=== PATIENT | female | born 1975 | race Caucasian/White ===

== ENCOUNTER 2017-11-10 01:33 | Emergency (ER) | payer OTHER, MEDICAID ==
[~2017-11-10] VITALS: Ht 170.2 cm; Wt 72.6 kg
[~2017-11-10 01:33] MED LIST: ADDERALL 20 MG20 M1; ADDERALL 20 MG20 MG PO; ALPRAZOLAM; AUGMENTIN 875875 MG PO; CARISOPRODOL 3350 MG PO; CLONAZEPAM; COMFORT PAC-MEL15 MG MC; DARVOCET-N 1001 EACH PO; FIORICET 50-301 EACH PO; FIORICET 50-321 EACH PO; FLEXERIL PO; HYDROCODONE-AP1 EAC6 PO; HYDROXYZINE HCL25 M2 PO; IBUPROFEN 200200 M1 PO; IBUPROFEN 800800 M1 PO; IBUPROFEN 800800 MG PO; LIDOCAINE VISC100 M1 MM; MEDROLDOSEPACK PO; MS CONTIN15 MG PO; NORCO 5-325 TA1 EACH PO; PENICILLIN V P500 MG PO; PERCOCET; PERCOCET 5-3251 EACH PO; PREDNISONE50 MG PO; TESSALON PERLE100 MG PO; TRAMADOL 50 MG50 MG; TRAMADOL 50 MG50 MG PO; VENTOLIN HFA 1818 GM INH; XANAX 0.5 MG0.5 MG; XANAX 0.5 MG0.5 MG PO; ZANAFLEX4 MG PO; ZOFRAN4 MG PO; ZPAK PO; ZYRTEC10 MG PO; cymbalta
[2017-11-10] MEDS ORDERED: LYRICA PO (01:42)
[2017-11-10] MEDS ORDERED: ROBAXIN 750 MG750 M1 (01:42)
[2017-11-10] MEDS ORDERED: ZYRTEC PO (01:42)
[2017-11-10 01:44] VITALS: BP 136/82
[2017-11-10] MEDS ORDERED: DOXYCYCLINE 10100 MG PO (02:23)
== END 2017-11-10 02:29 | disposition home or self-care (01) ==
LOC: M.ERS 01:33
DX: L02.511 Cutaneous abscess of right hand (principal); F41.9 Anxiety disorder, unspecified; M79.7 Fibromyalgia; F17.210 Nicotine dependence, cigarettes, uncomplicated; Z90.49 Acquired absence of other specified parts of digestive tract; Z90.710 Acquired absence of both cervix and uterus

== ENCOUNTER 2018-04-15 14:31 | Observation (INO) | payer OTHER, MEDICAID ==
[~2018-04-15] VITALS: Ht 172.7 cm; Wt 78.0 kg
[~2018-04-15 14:31] MED LIST changes: +DOXYCYCLINE 10100 MG PO; +LYRICA PO; +ROBAXIN 750 MG750 M1; +ZYRTEC PO
[2018-04-15 14:35] VITALS: BP 120/83
[2018-04-15] MEDS ORDERED: HYDROCODONE-ACE15 ML PO (14:37)
[2018-04-15 15:21] LABS: ABSOLUTE EOSINOPHILS 0.2 thou/uL (0.0-0.7); ABSOLUTE LYMPHOCYTES 2.6 thou/uL (0.8-5.3); ABSOLUTE MONOCYTES 0.5 thou/uL (0.0-1.2); BASOPHILS 0.5 %; EOSINOPHILS 2.6 %; HEMATOCRIT 37.9 % (37.0-47.0); HEMOGLOBIN 12.7 gm/dL (12.0-15.0); LYMPHOCYTES 30.7 %; MCH 29.8 pg (26.0-34.0); MCHC 33.6 g/dL (28.0-37.0); MCV 88.9 fL (80.0-100.0); MONOCYTES 6.4 %; MPV 8.6 fl. (7.2-11.1); NUCLEATED RBCS 0 /100WBC; PLATELET COUNT* 205 thou/uL (150-400); POLYS 59.8 %; RBC 4.26 mil/uL (4.20-5.00); RDW-CV 13.1 % (10.5-14.5); WBC 8.4 thou/uL (4.0-11.0)
[2018-04-15 15:35] LABS: APTT 28.9 Seconds (25.0-31.3); PROTIME 9.7 Seconds (9.20-11.50)
[2018-04-15 15:42] LABS: ANION GAP 7 mmol/L (7-16); BUN 14 mg/dL (7-18); CALCIUM 8.3 mg/dL (8.5-10.1); CHLORIDE 105 mmol/L (98-107); CO2 26 mmol/L (21-32); CREATININE 0.7 mg/dL (0.6-1.3); GLUCOSE 90 mg/dL (70-99); POTASSIUM 4.2 mmol/L (3.5-5.1); SODIUM 138 mmol/L (136-145)
[2018-04-15 15:53] LABS: ALBUMIN 3.3 g/dL (3.4-5.0); ALKALINE PHOSPHATASE 83 U/L (46-116); NT-PRO BRAIN NAT PEPTIDE 101 pg/mL (<300); SGOT 9 U/L (15-37); SGPT 11 U/L (30-65); TOTAL BILIRUBIN 0.2 mg/dL (<0.1-1.0); TOTAL PROTEIN 6.2 g/dL (6.4-8.2); TROPONIN-I LEVEL <0.06 ng/mL (<0.06)
[2018-04-15 16:43] LABS: URINE BILIRUBIN NEGATIVE (Negative); URINE BLOOD NEGATIVE (Negative); URINE CLARITY CLEAR; URINE COLOR YELLOW; URINE GLUCOSE-RANDOM NEGATIVE (Negative); URINE KETONES NEGATIVE (Negative); URINE LEUKOCYTES-REFLEX NEGATIVE (Negative); URINE NITRITE-REFLEX NEGATIVE (Negative); URINE PROTEIN NEGATIVE (Negative); URINE UROBILINOGEN 0.2 E.U./dl (0.2-1.0)
[2018-04-15 16:51] LABS: AMP/METHAMP POSITIVE (Negative); BARBITURATES Negative (Negative); BENZODIAZEPINES POSITIVE (Negative); COCAINE Negative (Negative); METHADONE Negative (Negative); OPIATES POSITIVE (Negative); PCP Negative (Negative); THC Negative (Negative)
[2018-04-15 16:56] VITALS: BP 120/83
[2018-04-15 17:50] VITALS: BP 115/78
[2018-04-15 20:00] VITALS: BP 124/75
[2018-04-15 23:38] VITALS: BP 112/50
[2018-04-16 00:23] VITALS: BP 113/73
[2018-04-16 03:55] VITALS: BP 108/70
[2018-04-16 08:15] VITALS: BP 110/89
[2018-04-16 11:50] LABS: CHOLESTEROL 149 mg/dL (<200); HDL CHOLESTEROL 41 mg/dL (>40); LDL CHOLESTEROL 94 mg/dL (<100); TC:HDL 3.6 Ratio (Not establshd); TRIGLYCERIDE 72 mg/dL (<150); VLDL 14 mg/dL (<40)
[2018-04-16 11:54] VITALS: BP 114/75
[2018-04-16 11:56] LABS: SERUM ASSESSMENT Clear
[2018-04-16 13:20] VITALS: BP 114/75
--- NOTE | 2018-04-17 14:37 | EKG ---
[place] [address] ELECTROCARDIOGRAM REPORT Name: JOSÉCUCA Samanta Room: [address]#: [id number] Admission: 04/15/18 Attend Phys: Georgina Aparicio Discharge: 04/16/18 Date of : 73 Report #: [id number] THIS REPORT FOR: //name// [facility] ED Test Date: 2018-04-15 Test Time: 14:39:44 Pat Name: CUCA KUMAR Department: Room: Gender: Greenskeeper: Wendy CRABTREE : 1975 Requested By: Matias Longoria Order Number: [id number] MD: Moshe Elena Measurements Intervals [place] Rate: 88 P: 74 WA: 143 QRS: 57 QRSD: 83 T: 62 QT: 343 QTc: 415 Interpretive Statements Sinus rhythm Compared to ECG 03/13/2015 01:55:20 No significant changes Electronically Signed On 04-17-2018 14:37:27 CDT by Moshe Elena [email or web address] <ELECTRONICALLY SIGNED> By: Moshe Elena MD, [facility] 04/17/18 1437 1439 143 Moshe Elena MD, [facility] /EPI
--- NOTE | 2018-04-25 09:40 | CON ---
[address] [address] CONSULTATION Name: KUMARCUCA England Room: [address] Rayo Fairchild#: [id number] Admission: 04/15/18 Attend Phys: Georgina Aparicio Discharge: 04/16/18 Date of : 73 Report #: [id number] THIS REPORT FOR: //name// CC: Jamel Perkins DATE OF SERVICE: 04/16/2018 HISTORY OF PRESENT ILLNESS: This is a 42-year-old female patient who was admitted yesterday with acute onset of dizziness. She gives a history that she became dizzy. It was worse with movement of the head. There was some problem with slurring of the speech. The dizziness was moderately severe. She feels back to her baseline. She did not have this kind of symptoms before. REVIEW OF SYSTEMS: Positive for multiple problems. She takes Xanax for anxiety and hydrocodone for back problems. She had tubal ligation and hysterectomy in the past. She has a history of fibromyalgia. She had some cardiac problems some time ago. They did a cardiac cath on him, but did not put the stents in. This was her relevant 14-point review of system. PAST MEDICAL HISTORY: Negative for any stroke. FAMILY HISTORY: Negative for any early age stroke. SOCIAL HISTORY: She smokes, but she does not drink any alcohol. PHYSICAL EXAMINATION: Indicate she is alert, responsive, able to follow simple and complex command. Her speech, concentration, fund of knowledge and memory is at her baseline. Cranial nerve examination 2-12 is unremarkable. Strength, sensation, reflexes and tones are symmetrical. There is no cerebellar sign. There is no papilledema. There is no meningeal sign. She is reasonably well-developed individual, who does not have any dysmorphic features of eyes, ears and face. Her pulses are palpable. She has no edema, cyanosis or jaundice. Cardiac examination is unremarkable. No respiratory difficulty or rhonchi was noticed. Vision and hearing is adequate. Her blood pressure is 108/70, respirations 18, pulse is 84, temperature is 98.4. Sodium was normal. LABORATORY DATA: Her white count was normal. She did have an MRI of the brain and MRA of the head and they were unremarkable. IMPRESSION: It is unlikely that this patient's symptoms were neurological in origin. Her MRI is normal, and we will try to locate the MRA. I will suggest working this patient up for systemic causes. ENT will be one cause to consider, but other causes like cardiac need to be excluded, especially with her prior history, but I will defer that evaluation and management to you. Clinically, it looks more like labyrinthitis. If her MRA is also normal, [place] [address] CONSULTATION Name: CUCA KUMAR Room: [address] Rayo Fairchild#: [id number] Admission: 04/15/18 Attend Phys: Georgina Aparicio Discharge: 04/16/18 Date of : 73 Report #: [id number] other neurological workup is needed, but because of her history of speech difficulty, I did order a lipid profile, sed rate, and she does need an echocardiogram. She had one, but looks like that was some time ago. They do not echo over the weekends if I understand emergency, but she might consider doing that as an outpatient. RECOMMENDATIONS: 1. It is unlikely that there is any neurological etiology for the patient's symptom. 2. I will suggest checking a lipid profile, sed rate, and echocardiogram sometime to complete the workup. 3. Otherwise, I will suggest concentrating on evaluating and for any systemic, especially ENT cause for the patient's symptom as the next step. I discussed all of it with the patient and she is agreeable with that. <ELECTRONICALLY SIGNED> By: Enrrique Kendall MD 04/25/18 0940 0814 [id number] Kendall MD /nt
== END 2018-04-16 13:45 | disposition home or self-care (01) ==
LOC: M.ERS 14:31 → M.TBA-ER 16:01 → M.2W 16:01
PROVIDERS: Emergency Medicine Emergency Medical Services; Psychiatry & Neurology Neuromuscular Medicine; ADMIT Internal Medicine
DX: H81.10 Benign paroxysmal vertigo, unspecified ear (principal); I63.9 Cerebral infarction, unspecified; F41.9 Anxiety disorder, unspecified; I25.10 Atherosclerotic heart disease of native coronary artery without angina pectoris; F17.210 Nicotine dependence, cigarettes, uncomplicated; Z90.710 Acquired absence of both cervix and uterus; Z79.899 Other long term (current) drug therapy; Z90.49 Acquired absence of other specified parts of digestive tract; Z98.890 Other specified postprocedural states

== ENCOUNTER 2019-12-08 11:11 | Emergency (ER) | payer BC, OTHER, MEDICAID ==
[~2019-12-08] VITALS: Ht 170.2 cm; Wt 77.1 kg
[~2019-12-08 11:11] MED LIST changes: +HYDROCODONE-ACE15 ML PO
[2019-12-08 12:25] LABS: ABSOLUTE EOSINOPHILS 0.1 thou/uL (0.0-0.7); ABSOLUTE LYMPHOCYTES 2.5 thou/uL (0.8-5.3); ABSOLUTE MONOCYTES 0.6 thou/uL (0.0-1.2); ABSOLUTE NEUTROPHILS 4.5 thou/uL (1.6-8.1); BASOPHILS 0.6 %; EOSINOPHILS 1.3 %; HEMATOCRIT 39.1 % (37.0-47.0); HEMOGLOBIN 13.4 gm/dL (12.0-15.0); LYMPHOCYTES 32.3 %; MCH 30.3 pg (26.0-34.0); MCHC 34.4 g/dL (28.0-37.0); MCV 88.2 fL (80.0-100.0); MONOCYTES 7.4 %; MPV 8.7 fl. (7.2-11.1); NUCLEATED RBCS 0 /100WBC; PLATELET COUNT* 220 thou/uL (150-400); POLYS 58.4 %; RBC 4.44 mil/uL (4.20-5.00); RDW-CV 12.8 % (10.5-14.5); WBC 7.7 thou/uL (4.0-11.0)
[2019-12-08 12:41] LABS: CALCIUM 8.2 mg/dL (8.5-10.1); CREATININE 0.8 mg/dL (0.6-1.3); POTASSIUM 4.3 mmol/L (3.5-5.1)
[2019-12-08 12:46] LABS: ALBUMIN 3.4 g/dL (3.4-5.0); TOTAL BILIRUBIN 0.2 mg/dL (<0.1-1.0); TOTAL PROTEIN 6.8 g/dL (6.4-8.2)
[2019-12-08] MEDS ORDERED: MOBIC15 MG PO (12:55)
[2019-12-08] MEDS ORDERED: LIDODERM1 EACH TRANSDERM (12:55)
[2019-12-08 13:00] VITALS: BP 136/78
--- NOTE | 2019-12-08 17:42 | EKG ---
[place] [address] ELECTROCARDIOGRAM REPORT Name: CUCA LEDESMA Room: [facility]#: [id number] Admission: 12/08/19 Attend Phys: Discharge: 12/08/19 Date of : 73 Date of Service: 12/08/19 1235 Report #: [id number] THIS REPORT FOR: //name// [facility] ED Test Date: 2019-12-08 Test Time: 12:35:40 Pat Name: CUCA LEDESMA Department: Room: Gender: F Debrander: : 1975 Requested By: Chau Collins Order Number: [id number] MD: Moshe Elena Measurements Intervals [place] Rate: 74 P: 70 ME: 148 QRS: 44 QRSD: 82 T: 73 QT: 362 QTc: 402 Interpretive Statements Sinus rhythm Low voltage, extremity leads Compared to ECG 04/15/2018 14:39:44 Low QRS voltage now present Electronically Signed On 12-08-2019 17:41:24 [employer]EEP[employer] OFFICER by Moshe Elena [email or web address] <ELECTRONICALLY SIGNED> By: Moshe Elena MD, [facility] 12/08/19 1741 1235 1235 Moshe Elena MD, [facility] /EPI
== END 2019-12-08 13:01 | disposition home or self-care (01) ==
LOC: M.ERS 11:11
PROVIDERS: Physician Assistant
DX: M25.512 Pain in left shoulder (principal); M79.7 Fibromyalgia; F17.210 Nicotine dependence, cigarettes, uncomplicated; Z90.49 Acquired absence of other specified parts of digestive tract; Z98.51 Tubal ligation status; Z90.710 Acquired absence of both cervix and uterus